=== PATIENT | female | born 1995 | race Caucasian/White ===

== ENCOUNTER 2018-04-09 11:11 | Emergency (ER) | payer BC ==
--- NOTE | 2018-04-09 11:21 | EDPHY ---
H & P Stated Complaint: Persistent headache Time Seen by Provider: 04/09/18 11:20 HPI/ROS: CHIEF COMPLAINT: Persistent headache HISTORY OF PRESENT ILLNESS: The patient presents the emergency department with a 2 week history of a bitemporal headache and associated nausea. The patient reports a history of migraines and has been taking Imitrex without any improvement of her symptoms. She has not had her typical symptoms of a visual aura with his headache. She denies any acute numbness or weakness. She denies fever, neck stiffness or focal neurologic symptoms. The patient denies any recent history of fall or trauma. The patient has been taking ibuprofen in addition to Imitrex. She denies any additional acute complaints. She reports her headache is moderate in nature. REVIEW OF SYSTEMS: A comprehensive 10 point review of systems is otherwise negative aside from elements mentioned in the history of present illness. Source: Patient Exam Limitations: No limitations - Personal History LMP (Females 10-55): 22-28 Days Ago Current Tetanus Diphtheria and Acellular Pertussis (TDAP): Unsure - Medical/Surgical History Hx Asthma: No Hx Chronic Respiratory Disease: No Hx Diabetes: No Hx Cardiac Disease: No Hx Renal Disease: No Hx Cirrhosis: No Hx Alcoholism: No Hx HIV/AIDS: No Hx Splenectomy or Spleen Trauma: No Other PMH: MIGRAINE - Social History Smoking Status: Former smoker - Physical Exam Exam: General Appearance: Alert, no distress Eyes: Pupils equal and round no pallor or injection ENT, Mouth: Mucous membranes moist Respiratory: There are no retractions, lungs are clear to auscultation Cardiovascular: Regular rate and rhythm Gastrointestinal: Abdomen is soft and nontender, no masses, bowel sounds normal Neurological: A&O, normal motor function, normal sensory exam, normal cranial nerves Skin: Warm and dry, no rashes Musculoskeletal: Neck is supple nontender, specifically no meningeal symptoms Extremities: symmetrical, full range of motion Constitutional: Initial Vital Signs Temperature (C) 36.7 C 04/09/18 11:14 Heart Rate 94 04/09/18 11:14 Respiratory Rate 18 04/09/18 11:14 Blood Pressure 113/81 H 04/09/18 11:14 O2 Sat (%) 95 04/09/18 11:14 O2 Delivery Mode Room Air Allergies/Adverse Reactions: No Known Allergies Allergy (Unverified 04/09/18 11:13) Home Medications: Medication Instructions Recorded FLUoxetine 04/09/18 IMITREX 04/09/18 VYVANSE 04/09/18 Medical Decision Making - Diagnostics Imaging Results: Imaging Impressions Brain MRI 04/09/18 11:28 Impression: Normal MRI of the brain without contrast. Findings and recommendations discussed with Emergency Department physician, Anatoly Calvert at 12:53 hour, 04/09/2018. Final report concurs with initial preliminary interpretation. ED Course/Re-evaluation: The patient presents to the ED with a 2 week history of bitemporal headache and associated nausea. It is not typical of her usual migraine. It is not improved with ibuprofen and Imitrex. Given the duration an atypical presentation of her headache we did discuss neuro imaging. The patient did undergo a unremarkable brain MRI. She was treated with IV Reglan, Toradol, Decadron and Benadryl. I re-evaluated the patient at 1:00 p.m.. She reports her headache is significantly decreased. Her neurologic examination remains normal. She has no clinical evidence of meningitis. The patient will be discharged home with customary aftercare instructions and return precautions. She is given the contact number of our on-call neurologist for any ongoing mild intermittent headaches. Differential Diagnosis: Differential diagnosis considered includes tension headache, migraine headache, meningitis, [employer] tumor - Data Points Laboratory Results: Laboratory Results 04/09/18 11:40 04/09/18 11:40 04/09/18 04/09/18 11:40 11:40 WBC 4.34 10^3/uL 10^3/uL (3.80-9.50) RBC 4.52 10^6/uL 10^6/uL (4.18-5.33) Hgb 14.4 g/dL g/dL (12.6-16.3) Hct 43.0 % % (38.0-47.0) MCV 95.1 fL fL (81.5-99.8) MCH 31.9 pg pg (27.9-34.1) MCHC 33.5 g/dL g/dL (32.4-36.7) RDW 12.4 % % (11.5-15.2) Plt Count 237 10^3/uL 10^3/uL (150-400) MPV 9.5 fL fL (8.7-11.7) Neut % (Auto) 33.8 % L % (39.3-74.2) Lymph % (Auto) 56.7 % H % (15.0-45.0) Beadle % (Auto) 8.5 % % (4.5-13.0) Eos % (Auto) 0.5 % L % (0.6-7.6) Baso % (Auto) 0.5 % % (0.3-1.7) Nucleat RBC Rel Count 0.0 % % (0.0-0.2) Absolute Neuts (auto) 1.47 10^3/uL L 10^3/uL (1.70-6.50) Absolute Lymphs (auto) 2.46 10^3/uL 10^3/uL (1.00-3.00) Absolute Monos (auto) 0.37 10^3/uL 10^3/uL (0.30-0.80) Absolute Eos (auto) 0.02 10^3/uL L 10^3/uL (0.03-0.40) Absolute Basos (auto) 0.02 10^3/uL 10^3/uL (0.02-0.10) Absolute Nucleated RBC 0.00 10^3/uL 10^3/uL (0-0.01) Immature Gran % 0.0 % % (0.0-1.1) Immature Gran # 0.00 10^3/uL 10^3/uL (0.00-0.10) Sodium 139 mEq/L mEq/L (135-145) Potassium 4.2 mEq/L mEq/L (3.5-5.2) Chloride 105 mEq/L mEq/L (97-110) Carbon Dioxide 23 mEq/l mEq/l (22-31) Anion Gap 11 mEq/L mEq/L (6-14) BUN 15 mg/dL mg/dL (7-23) Creatinine 0.8 mg/dL mg/dL (0.6-1.0) Estimated GFR > 60 Glucose 88 mg/dL mg/dL (70-100) Calcium 9.4 mg/dL mg/dL (8.5-10.4) Medications Given: Discontinued Medications Dexamethasone (Decadron Injection) 10 mg IVP EDNOW ONE Stop: 04/09/18 11:29 Last Admin: 04/09/18 11:52 Dose: 10 mg Diphenhydramine HCl (Benadryl Injection) 25 mg IVP EDNOW ONE Stop: 04/09/18 11:29 Last Admin: 04/09/18 11:52 Dose: 25 mg Ketorolac Tromethamine (Toradol) 30 mg IVP EDNOW ONE Stop: 04/09/18 11:29 Last Admin: 04/09/18 11:50 Dose: 30 mg Metoclopramide HCl (Reglan Injection) 10 mg IVP EDNOW ONE Stop: 04/09/18 11:29 Last Admin: 04/09/18 11:53 Dose: 10 mg Departure - Departure Disposition: Home, Routine, Self-Care Clinical Impression: Acute headache Condition: Good Instructions: Acute Headache (ED) Additional Instructions: 1. Tylenol and ibuprofen as needed for headache. 2. Follow up with the neurologist you have been referred to if you continue to have intermittent symptoms of a mild headache. 3. Please return to the ED for fever, neck stiffness, markedly worsening symptoms or other concerns. Referrals: Karl Bonilla MD [Medical Doctor] - As per Instructions
[2018-04-09] MEDS ORDERED: METOCLOPRAMIDE 10 MG/2 ML VIAL IVP ONE (11:28)
[2018-04-09] MEDS ORDERED: DEXAMETHASONE 10 MG/ML VIAL IVP ONE (11:28)
[2018-04-09] MEDS ORDERED: KETOROLAC 30 MG/1 ML SDV IVP ONE (11:28)
[2018-04-09 11:56] LABS: PLATELET COUNT 237 10^3/uL (150-400)
[2018-04-09 13:12] VITALS: BP 105/69
== END 2018-04-09 13:11 | disposition home or self-care (01) ==
DX: G43.909 Migraine, unspecified, not intractable, without status migrainosus (principal); Z87.891 Personal history of nicotine dependence
CPT/HCPCS: 96374; J1100; J1200; J1885; J2765